=== PATIENT | male | born 1995 | race Caucasian/White ===

== ENCOUNTER 2020-10-29 13:52 | Emergency (ER) | payer OTHER ==
--- NOTE | 2020-10-29 17:22 | CT ---
EXAM: CT brain without contrast HISTORY: Headache COMPARISON: None TECHNIQUE: Multiple contiguous axial images were obtained and a CT of the brain without contrast. FINDINGS: No hydrocephalus is seen. No confluent infarction is seen. There may be a small amount of s ubdural hemorrhage in the right frontal region and in the right temporal region immediately beneath the temporal bone fracture. There may be a small amount of hemorrhage along the left sylvian fissure on image 22 of 32. No pneumocephalus. No midline shift or downward herniation is seen. There is a right temporal bone fracture. The visualized paranasal sinuses and mastoid air cells are w ell aerated. IMPRESSION: 1. Right temporal bone fracture 2. Possible small amount of subdural blood in the right frontal and temporal regions as well as along the left sylvian fissure.
== END 2020-10-29 19:09 | disposition home or self-care (01) ==
LOC: ERS 13:52
DX: S02.19XA Other fracture of base of skull, initial encounter for closed fracture (principal); S06.6X0A Traumatic subarachnoid hemorrhage without loss of consciousness, initial encounter; W19.XXXA Unspecified fall, initial encounter
CPT/HCPCS: 70450